=== PATIENT | male | born 1965 | race Asian ===

== ENCOUNTER 2020-02-04 18:20 | Emergency (ER) | payer OTHER ==
[~2020-02-04] VITALS: Ht 170.2 cm; Wt 102.1 kg
[2020-02-04] MEDS ORDERED: ATORVASTATIN CA20 MG (18:34)
[2020-02-04] MEDS ORDERED: LOSARTAN POTASS25 MG (18:34)
== END 2020-02-04 22:28 | disposition home or self-care (01) ==
LOC: ER 18:20
DX: R06.9 Unspecified abnormalities of breathing (principal); R55 Syncope and collapse